=== PATIENT | male | born 1955 | race American Indian/Alaskan Native ===

== ENCOUNTER 2019-03-03 10:40 | Emergency (ER) | payer MEDICAID ==
--- NOTE | 2019-03-03 11:32 | Emergency Department Report ---
ED Abdominal Pain HPI - General Chief Complaint: Abdominal Pain Stated Complaint: ABDOMINAL PAIN/DIARRHEA Time Seen by Provider: 03/03/19 11:14 Source: patient Mode of arrival: Ambulatory Limitations: No Limitations - History of Present Illness Initial Comments: This is a 63-year-old male who presents to ED complaining of abdominal soreness generalized in nature and watery loose stools for the past week. Patient states that he has been experiencing watery nonbloody loose stools for the past week. Patient denies fevers/assessment vomiting with it she describes abdominal pain as soreness and aching in nature. Patient states he is able to eat normally no problems. MD Complaint: abdominal pain - Related Data Previous Rx's Medication Instructions Recorded Last Taken Type ALBUTEROL Inhaler (OR & NICU) 2 puff IH QID PRN #1 inhalation 08/20/18 Unknown Rx [ProAir HFA Inhaler] Benzonatate [Tessalon Perles] 100 mg PO Q8HR #10 capsule 08/20/18 Unknown Rx HYDROcodone/APAP 5-325 [[place] 1 each PO Q4HR PRN #12 tablet 08/20/18 Unknown Rx 5/325] predniSONE [Deltasone] 20 mg PO QDAY #5 tab 08/20/18 Unknown Rx Dicyclomine [Bentyl] 10 mg PO BID #20 capsule 03/03/19 Unknown Rx Loperamide [Imodium] 2 mg PO TID #20 capsule 03/03/19 Unknown Rx Allergies Allergy/AdvReac Type Severity Reaction Status Date / Time No Known Allergies Allergy Verified 03/03/19 10:42 ED Review of Systems ROS: Stated complaint: ABDOMINAL PAIN/DIARRHEA Other details as noted in HPI Comment: All other systems reviewed and negative ED Past Medical Hx - Past Medical History Hx Hypertension: Yes Additional medical history: high cholesterol - Social History Smoking Status: Former Smoker Substance Use Type: None - Medications Home Medications: Home Medications Medication Instructions Recorded Confirmed Last Taken Type ALBUTEROL Inhaler (OR & NICU) 2 puff IH QID PRN #1 inhalation 08/20/18 Unknown Rx [ProAir HFA Inhaler] Benzonatate [Tessalon Perles] 100 mg PO Q8HR #10 capsule 08/20/18 Unknown Rx HYDROcodone/APAP 5-325 [[place] 1 each PO Q4HR PRN #12 tablet 08/20/18 Unknown Rx 5/325] predniSONE [Deltasone] 20 mg PO QDAY #5 tab 08/20/18 Unknown Rx Dicyclomine [Bentyl] 10 mg PO BID #20 capsule 03/03/19 Unknown Rx Loperamide [Imodium] 2 mg PO TID #20 capsule 03/03/19 Unknown Rx ED Physical Exam - General Limitations: No Limitations General appearance: alert, in no apparent distress - Head Head exam: Present: atraumatic, normocephalic - Eye Eye exam: Present: normal appearance - ENT ENT exam: Present: mucous membranes moist - Neck Neck exam: Present: normal inspection - Respiratory Respiratory exam: Present: normal lung sounds bilaterally. Absent: respiratory distress - Cardiovascular Cardiovascular Exam: Present: regular rate, normal rhythm. Absent: systolic murmur, diastolic murmur, rubs, gallop - GI/Abdominal GI/Abdominal exam: Present: soft, normal bowel sounds - Rectal Rectal exam: Present: deferred - Extremities Exam Extremities exam: Present: normal inspection - Back Exam Back exam: Present: normal inspection - Neurological Exam Neurological exam: Present: alert, oriented X3 - Psychiatric Psychiatric exam: Present: normal affect, normal mood - Skin Skin exam: Present: warm, dry, intact, normal color. Absent: rash ED Course Vital Signs 03/03/19 03/03/19 10:45 15:24 Temperature 97.7 F 97.7 F Pulse Rate 62 64 Respiratory 18 16 Rate Blood Pressure 100/70 96/70 O2 Sat by Pulse 96 92 Oximetry ED Medical Decision Making - Lab Data Result diagrams: 03/03/19 13:19 03/03/19 13:19 - Radiology Data Radiology results: report reviewed, image reviewed FINDINGS: CT ABDOMEN: Lung Bases: Clear. Liver: No enlargement. Mild diffuse fatty infiltration is noted. Biliary: No significant abnormality. Spleen: No significant abnormality. Unenlarged. Pancreas: No significant abnormality. Adrenals: No significant abnormality. Kidneys: No significant abnormality. Lymphatics: No lymphadenopathy. Vasculature: Mild aortic calcifications. No aneurysm Bowel/Peritoneum: No significant abnormality. No free air. No free fluid. Normal appendix. CT PELVIS: : No significant abnormality. Osseous Structures: Moderate lumbar spondylosis and degenerative changes of both hips. Focal area of osteonecrosis is identified in the superior left femoral head. Additional Findings: There are 2 ovoid soft tissue densities posterior to the right hepatic lobe adjacent to the 10th rib measuring up to 2.8 x 1.7 cm. The etiology of these are unclear. These may represent schwannomas or other neurogenic lesion. IMPRESSION: No acute process is identified in the abdomen or pelvis. Mild hepatic steatosis. Degenerative changes as described. 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 Ovoid soft tissue densities posterior the right hepatic lobe as described above. These have a benign appearance. Signer Name: Stephen Cutler Jr, MD Signed: 03/03/2019 1:30 PM Workstation Name: [id number] Transcribed By: TTR Dictated By: STEPHEN CUTLER JR, MD Electronically Authenticated By: STEPHEN CUTLER JR, MD Signed Date/Time: 03/03/19 9080 - Medical Decision Making This 63-year-old male presents with acute diarrhea All labs are within normal limits. Patient received Imodium and Bentyl ED. Patient reports feeling better. Discussed the patient to follow up with [facility] as referred. Past sensory are stable patient is in no acute distress. Abdominal Exam nontender. CT scan shows no acute status. Discussed findings with the patient. Discussed the patient to follow up with primary care physician. Critical care attestation.: If time is entered above; I have spent that time in minutes in the direct care of this critically ill patient, excluding procedure time. ED Disposition Clinical Impression: Acute diarrhea, Acute gastroenteritis Disposition: DC-01 TO HOME OR SELFCARE Is pt being admited?: No Does the pt Need Aspirin: No Condition: Stable Instructions: Gastroenteritis (ED), Abdominal Pain (ED), Acute Diarrhea (ED) Additional Instructions: Make sure to follow up with the primary care physician as well as a auto rebuilder as discussed. Take all your medications as you've been prescribed. If you have any worsening symptoms or develop new symptoms please return to ED immediately. Prescriptions: Dicyclomine [Bentyl] 10 mg PO BID #20 capsule Loperamide [Imodium] 2 mg PO TID #20 capsule Referrals: PRIMARY CAREMD [Primary Care Provider] - 3-5 Days [facility] [Provider Group] - 3-5 Days Forms: Accompanied Note, Work/School Release Form(ED) Time of Disposition: 15:41
--- NOTE | 2019-03-03 13:34 | Cat Scan Report ---
CT ABDOMEN AND PELVIS WITHOUT CONTRAST HISTORY: Abdominal pain in umbilical region for 7 days, diarrhea. COMPARISON: None. TECHNIQUE: Axial CT images were obtained through the abdomen and pelvis without IV contrast. Sagittal and coronal reformatted images. All CT scans at this location are performed using CT dose reduction for ALARA by means of automated exposure control. FINDINGS: CT ABDOMEN: Lung Bases: Clear. Liver: No enlargement. Mild diffuse fatty infiltration is noted. Biliary: No significant abnormality. Spleen: No significant abnormality. Unenlarged. Pancreas: No significant abnormality. Adrenals: No significant abnormality. Kidneys: No significant abnormality. Lymphatics: No lymphadenopathy. Vasculature: Mild aortic calcifications. No aneurysm Bowel/Peritoneum: No significant abnormality. No free air. No free fluid. Normal appendix. CT PELVIS: : No significant abnormality. Osseous Structures: Moderate lumbar spondylosis and degenerative changes of both hips. Focal area of osteonecrosis is identified in the superior left femoral head. Additional Findings: There are 2 ovoid soft tissue densities posterior to the right hepatic lobe elaina cent to the 10th rib measuring up to 2.8 x 1.7 cm. The etiology of these are unclear. These may repre sent schwannomas or other neurogenic lesion. IMPRESSION: No acute process is identified in the abdomen or pelvis. Mild hepatic steatosis. Degenerative changes as described. 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 Ovoid soft tissue densities posterior the right hepatic lobe as described above. These have a benign appearance. Signer Name: Stephen Hunter Jr, MD Signed: 03/03/2019 1:30 PM Workstation Name: [id number]
[2019-03-03 13:42] LABS: Basophils % (Auto) 0.5 % (0.0-1.8); Eosinophils # (Auto) 0.2 K/mm3 (0.0-0.4); Hematocrit 37.8 % (35.5-45.6); Hemoglobin 12.1 gm/dl (11.8-15.2); Lymphocytes # (Auto) 2.1 K/mm3 (1.2-5.4); Lymphocytes % (Auto) 30.9 % (13.4-35.0); Mean Corpuscular HGB Conc 32 % (32-34); Mean Corpuscular Volume 74 fl (84-94); Monocytes # (Auto) 0.8 K/mm3 (0.0-0.8); Monocytes % (Auto) 11.9 % (0.0-7.3); Platelet Count 269 K/mm3 (140-440); Red Blood Count 5.12 M/mm3 (3.65-5.03); Red Cell Distribution Width 16.6 % (13.2-15.2)
[2019-03-03 13:57] LABS: Albumin 3.9 g/dL (3.9-5)
[2019-03-03] MEDS ORDERED: IMODIUM PO ONE (14:42)
[2019-03-03] MEDS ORDERED: BENTYL PO ONE (14:43)
[2019-03-03 14:46] LABS: Alanine Aminotransferase 20 units/L (7-56); BUN/Creatinine Ratio 10; Blood Urea Nitrogen 10 mg/dL (9-20); Hemolysis Index 6
[2019-03-03 15:57] VITALS: BP 100/71
== END 2019-03-03 15:56 | disposition home or self-care (01) ==
LOC: ED 10:40
DX: K52.9 Noninfective gastroenteritis and colitis, unspecified (principal); I10 Essential (primary) hypertension; E78.5 Hyperlipidemia, unspecified; Z79.899 Other long term (current) drug therapy
CPT/HCPCS: 36415; 74176; 80053; 85025

== ENCOUNTER 2019-04-25 09:01 | Inpatient (IN) | payer MEDICAID ==
[2019-04-25] MEDS ORDERED: ASPIRIN PO ONE (09:13)
--- NOTE | 2019-04-25 10:01 | XRay Report ---
CHEST 1 VIEW INDICATION / CLINICAL INFORMATION: Chest Pain. COMPARISON: 08/20/2018 FINDINGS: SUPPORT DEVICES: None. HEART / MEDIASTINUM: No significant abnormality. LUNGS / PLEURA: Mild bibasilar subsegmental atelectasis No pneumothorax. ADDITIONAL FINDINGS: No significant additional findings. IMPRESSION: Mild bibasilar subsegmental atelectasis. No other significant abnormality. Signer Name: Mark Rahman MD FACR Signed: 04/25/2019 9:57 AM Workstation Name: [id number]
[2019-04-25 10:27] LABS: Basophils % (Auto) 0.5 % (0.0-1.8); Eosinophils # (Auto) 0.3 K/mm3 (0.0-0.4); Eosinophils % (Auto) 3.9 % (0.0-4.3); Hematocrit 32.6 % (35.5-45.6); Hemoglobin 10.6 gm/dl (11.8-15.2); Lymphocytes # (Auto) 2.6 K/mm3 (1.2-5.4); Lymphocytes % (Auto) 31.8 % (13.4-35.0); Mean Corpuscular HGB Conc 33 % (32-34); Mean Corpuscular Volume 71 fl (84-94); Monocytes # (Auto) 0.8 K/mm3 (0.0-0.8); Monocytes % (Auto) 9.7 % (0.0-7.3); Platelet Count 291 K/mm3 (140-440); Red Blood Count 4.59 M/mm3 (3.65-5.03); Red Cell Distribution Width 17.1 % (13.2-15.2)
[2019-04-25 10:45] LABS: BUN/Creatinine Ratio 11; Blood Urea Nitrogen 9 mg/dL (9-20); Calcium 8.8 mg/dL (8.4-10.2); Hemolysis Index 3
[2019-04-25] MEDS ORDERED: NACL 0.9% 1000 ML 1,000 ML IV ONE (11:04)
[2019-04-25] MEDS ORDERED: MORPHINE IV ONE (11:04)
[2019-04-25] MEDS ORDERED: ZOFRAN IV ONE (11:04)
[2019-04-25] MEDS ORDERED: K-DUR PO ONE (11:05)
--- NOTE | 2019-04-25 11:06 | Emergency Department Report ---
ED General Adult HPI - General Chief complaint: Chest Pain Stated complaint: CHEST/SHOULDER/RIB PAIN Time Seen by Provider: 04/25/19 10:39 Source: patient Mode of arrival: Ambulatory Limitations: No Limitations - History of Present Illness Initial comments: This is a 63-year-old gentleman. This patient is not known to this provider previously. His primary care doctor is Dr. Rubio His past medical history includes hypertension. The patient presents to the ER with a complaint of nontraumatic lower abdominal pain. The pain has been present for a few days. It started in the left lower quadrant, radiates up superiorly, and then moves over to the left upper quadrant, epigastric region, right upper quadrant. There is associated nontraumatic abdominal distention, and left shoulder pain. The patient feels mildly short of breath. He denies hematemesis. He denies bright red blood per rectum. He has some epigastric pain. He denies DVT, pulmonary embolism risk factors. He has central chest pressure as well. He denies urinary symptoms, and testicular pain/discomfort. He also endorses a negative colonoscopy within the past few years. -: Gradual, days(s) Location: abdomen Radiation: extremity, abdomen Severity scale (0 -10): 8 Quality: aching Consistency: intermittent Improves with: rest Worsens with: movement - Related Data Previous Rx's Medication Instructions Recorded Last Taken Type ALBUTEROL Inhaler (OR & NICU) 2 puff IH QID PRN #1 inhalation 08/20/18 Unknown Rx [ProAir HFA Inhaler] Benzonatate [Tessalon Perles] 100 mg PO Q8HR #10 capsule 08/20/18 Unknown Rx HYDROcodone/APAP 5-325 [[place] 1 each PO Q4HR PRN #12 tablet 08/20/18 Unknown Rx 5/325] predniSONE [Deltasone] 20 mg PO QDAY #5 tab 08/20/18 Unknown Rx Dicyclomine [Bentyl] 10 mg PO BID #20 capsule 03/03/19 Unknown Rx Loperamide [Imodium] 2 mg PO TID #20 capsule 03/03/19 Unknown Rx Allergies Allergy/AdvReac Type Severity Reaction Status Date / Time No Known Allergies Allergy Verified 03/03/19 10:42 ED Review of Systems ROS: Stated complaint: CHEST/SHOULDER/RIB PAIN Other details as noted in HPI Constitutional: malaise. denies: fever Eyes: denies: eye discharge ENT: denies: epistaxis Respiratory: denies: cough, wheezing Cardiovascular: chest pain. denies: syncope Gastrointestinal: abdominal pain. denies: constipation, hematemesis, melena, hematochezia Genitourinary: denies: urgency, dysuria, frequency, hematuria, testicular pain Musculoskeletal: arthralgia, myalgia Skin: denies: lesions Neurological: denies: headache Psychiatric: anxiety ED Past Medical Hx - Past Medical History Previous Medical History?: Yes Hx Hypertension: Yes Hx Deep Vein Thrombosis: Yes Additional medical history: high cholesterol - Surgical History Past Surgical History?: No - Social History Smoking Status: Former Smoker Substance Use Type: None - Medications Home Medications: Home Medications Medication Instructions Recorded Confirmed Last Taken Type ALBUTEROL Inhaler (OR & NICU) 2 puff IH QID PRN #1 inhalation 08/20/18 Unknown Rx [ProAir HFA Inhaler] Benzonatate [Tessalon Perles] 100 mg PO Q8HR #10 capsule 08/20/18 Unknown Rx HYDROcodone/APAP 5-325 [[place] 1 each PO Q4HR PRN #12 tablet 08/20/18 Unknown Rx 5/325] predniSONE [Deltasone] 20 mg PO QDAY #5 tab 08/20/18 Unknown Rx Dicyclomine [Bentyl] 10 mg PO BID #20 capsule 03/03/19 Unknown Rx Loperamide [Imodium] 2 mg PO TID #20 capsule 03/03/19 Unknown Rx ED Physical Exam - General Limitations: No Limitations General appearance: alert, anxious, obese - Head Head exam: Present: atraumatic, normocephalic - Eye Eye exam: Present: normal appearance, EOMI. Absent: nystagmus - ENT ENT exam: Present: normal exam, normal orophraynx, mucous membranes moist, normal external ear exam - Neck Neck exam: Present: normal inspection, full ROM. Absent: tenderness, meningismus - Respiratory Respiratory exam: Present: normal lung sounds bilaterally. Absent: respiratory distress - Cardiovascular Cardiovascular Exam: Present: regular rate, normal rhythm, normal heart sounds. Absent: bradycardia, tachycardia, irregular rhythm, systolic murmur, diastolic murmur, rubs, gallop - GI/Abdominal GI/Abdominal exam: Present: soft, distended. Absent: tenderness, guarding, rebound, rigid, pulsatile mass - Rectal Rectal exam: Present: normal inspection, normal rectal tone, heme (-) stool, other (chaperoned by ALINA Gabriel). Absent: heme (+) stool, black stool, bloody stool, fecal impaction, hemorrhoids - exam: Present: normal inspection, other (chaperoned by ALINA Gabriel). Absent: testicular tenderness External exam: Present: normal external exam (there is normal testicular lie. There is normal cremasteric reflex. There is no testicular tenderness.) - Extremities Exam Extremities exam: Present: normal inspection, full ROM, other (2+ pulses noted in the bilateral upper, lower extremities. There is no long bony tenderness. The pelvis is stable. The muscular compartments are soft. There is full range of motion in the bilateral upper, lower extremity joints.). Absent: tenderness, pedal edema, joint swelling, calf tenderness - Back Exam Back exam: Present: normal inspection, full ROM. Absent: tenderness, CVA tenderness (R), CVA tenderness (L), paraspinal tenderness, vertebral tenderness - Neurological Exam Neurological exam: Present: alert, oriented X3, other (there is no facial droop. The tongue is midline. Extraocular movements are intact bilaterally. Patient speaking in full complete sentences. Shoulder shrug is intact bilaterally. Hearing is grossly intact bilaterally. Visual acuity intact to finger counting and color perception at a close distance. 5/5 strength 4 extremities. Sensation intact to light touch in 4 extremities.). Absent: motor sensory deficit - Psychiatric Psychiatric exam: Present: anxious - Skin Skin exam: Present: warm, dry, intact, normal color. Absent: rash ED Course Vital Signs 04/25/19 04/25/19 04/25/19 09:08 10:13 10:14 Temperature 98.5 F Pulse Rate 75 80 Respiratory 16 21 23 Rate Blood Pressure 142/84 Blood Pressure 165/100 [Right] O2 Sat by Pulse 93 90 93 Oximetry - Reevaluation(s) Reevaluation #1: 04/25/19 12:15 Differential diagnosis, including not limited to: Intra-abdominal bleeding, intra-abdominal infection, AAA, pulmonary embolism, pneumonia, acute coronary syndrome Assessment and plan: 63-year-old gentleman with a complaint of diffuse abdominal pain, distention, shoulder pain, guaiac negative, hemoglobin, hematocrit slightly lower than when compared to prior, also found to be hypoxic, which appears to be new for him. He require supplemental oxygen. We have recommended CT scan of the chest, abdomen, pelvis for further diagnostic evaluation. Laboratory studies reviewed and appreciated. Pain medication, fluids, potassium supplementation has been ordered. The patient is resting comfortably, and history of her, and in no acute distress. We will reassess once his data points have resulted. Reevaluation #2: 04/25/19 12:17 Aspirin was ordered as per protocol, before my personal evaluation of the patient, and was administered before I was physically present in the department to evaluate the patient. Reevaluation #3: 04/25/19 13:22 CT scan of the chest shows bilateral lower lobe consolidations. No pulmonary emboli noted. CT scan of the abdomen pelvis negative for acute rheumatic disease. Patient continues to require submental oxygen. Antibiotics blood cultures ordered. Dr Ribeiro to admit 04/25/19 13:23 Given obesity, body habitus, physical exam findings, suspect that patient may have undiagnosed obstructive sleep apnea, COPD, probable pulmonary hypertension, and atelectatic changes. ED Medical Decision Making - Lab Data Result diagrams: 04/25/19 09:58 04/25/19 09:58 Vital Signs 04/25/19 04/25/19 04/25/19 09:08 10:13 10:14 Temperature 98.5 F Pulse Rate 75 80 Respiratory 16 21 23 Rate Blood Pressure 142/84 Blood Pressure 165/100 [Right] O2 Sat by Pulse 93 90 93 Oximetry Lab Results 04/25/19 04/25/19 04/25/19 Range/Units 09:58 09:58 09:58 WBC 8.2 (4.5-11.0) K/mm3 RBC 4.59 (3.65-5.03) M/mm3 Hgb 10.6 L (11.8-15.2) gm/dl Hct 32.6 L (35.5-45.6) % MCV 71 L (84-94) fl MCH 23 L (28-32) pg MCHC 33 (32-34) % RDW 17.1 H (13.2-15.2) % Plt Count 291 (140-440) K/mm3 Lymph % (Auto) 31.8 (13.4-35.0) % [place] % (Auto) 9.7 H (0.0-7.3) % Eos % (Auto) 3.9 (0.0-4.3) % Baso % (Auto) 0.5 (0.0-1.8) % Lymph # 2.6 (1.2-5.4) K/mm3 [place] # 0.8 (0.0-0.8) K/mm3 Eos # 0.3 (0.0-0.4) K/mm3 Baso # 0.0 (0.0-0.1) K/mm3 Seg Neutrophils % 54.1 (40.0-70.0) % Seg Neutrophils # 4.4 (1.8-7.7) K/mm3 PT (12.2-14.9) Sec. INR (0.87-1.13) APTT (24.2-36.6) Sec. D-Dimer (0-234) ng/mlDDU Sodium 142 (137-145) mmol/L Potassium 3.1 L (3.6-5.0) mmol/L Chloride 99.4 (98-107) mmol/L Carbon Dioxide 27 (22-30) mmol/L Anion Gap 19 mmol/L BUN 9 (9-20) mg/dL Creatinine 0.8 (0.8-1.5) mg/dL Estimated GFR > 60 ml/min BUN/Creatinine Ratio 11 % Glucose 98 (75-100) mg/dL Calcium 8.8 (8.4-10.2) mg/dL Magnesium 2.20 (1.7-2.3) mg/dL Total Bilirubin 0.60 (0.1-1.2) mg/dL Direct Bilirubin < 0.2 (0-0.2) mg/dL Indirect Bilirubin 0.4 mg/dL AST 24 (5-40) units/L ALT 23 (7-56) units/L Alkaline Phosphatase 77 (35-129) units/L Total Creatine Kinase 390 H (55-170) units/L Troponin T < 0.010 (0.00-0.029) ng/mL Total Protein 7.4 (6.3-8.2) g/dL Albumin 4.2 (3.9-5) g/dL Albumin/Globulin Ratio 1.3 % Lipase 14 (13-60) units/L 04/25/19 Range/Units 11:18 WBC (4.5-11.0) K/mm3 RBC (3.65-5.03) M/mm3 Hgb (11.8-15.2) gm/dl Hct (35.5-45.6) % MCV (84-94) fl MCH (28-32) pg MCHC (32-34) % RDW (13.2-15.2) % Plt Count (140-440) K/mm3 Lymph % (Auto) (13.4-35.0) % [place] % (Auto) (0.0-7.3) % Eos % (Auto) (0.0-4.3) % Baso % (Auto) (0.0-1.8) % Lymph # (1.2-5.4) K/mm3 [place] # (0.0-0.8) K/mm3 Eos # (0.0-0.4) K/mm3 Baso # (0.0-0.1) K/mm3 Seg Neutrophils % (40.0-70.0) % Seg Neutrophils # (1.8-7.7) K/mm3 PT 13.0 (12.2-14.9) Sec. INR 1.01 (0.87-1.13) APTT 33.7 (24.2-36.6) Sec. D-Dimer 835.31 H (0-234) ng/mlDDU Sodium (137-145) mmol/L Potassium (3.6-5.0) mmol/L Chloride (98-107) mmol/L Carbon Dioxide (22-30) mmol/L Anion Gap mmol/L BUN (9-20) mg/dL Creatinine (0.8-1.5) mg/dL Estimated GFR ml/min BUN/Creatinine Ratio % Glucose (75-100) mg/dL Calcium (8.4-10.2) mg/dL Magnesium (1.7-2.3) mg/dL Total Bilirubin (0.1-1.2) mg/dL Direct Bilirubin (0-0.2) mg/dL Indirect Bilirubin mg/dL AST (5-40) units/L ALT (7-56) units/L Alkaline Phosphatase (35-129) units/L Total Creatine Kinase (55-170) units/L Troponin T (0.00-0.029) ng/mL Total Protein (6.3-8.2) g/dL Albumin (3.9-5) g/dL Albumin/Globulin Ratio % Lipase (13-60) units/L - EKG Data -: EKG Interpreted by Nc EKG shows normal: sinus rhythm Rate: normal - EKG Data 04/25/19 12:17 There is no prior EKG available for comparison. This is a sinus rhythm, left axis deviation, left anterior fascicular block, left ventricular hypertrophy, he is abnormal, there is no prior for comparison, the EKG is not consistent with ST elevation myocardial infarction. - Radiology Data Radiology results: report reviewed, image reviewed t Report Referring Physician: ED LEON Patient Name: AYO MCFADDEN Date of : 1955 Sex: Male Report Date: 2019-04-25 Report Status: Finalized Findings [facility] [address] [place] [address] XRay Report Signed Patient: AYO MCFADDEN MR#: [id number] : 1955 Acct:[id number] Age/Sex: 63 / M ADM Date: 04/25/19 Loc: ED Attending Dr: Ordering Physician: PEDRO QUINTERO MD Date of Service: 04/25/19 Procedure(s): XR chest 1V ap Accession Number(s): [id number] cc: PEDRO QUINTERO MD Fluoro Time In Minutes: CHEST 1 VIEW INDICATION / CLINICAL INFORMATION: Chest Pain. COMPARISON: 08/20/2018 FINDINGS: SUPPORT DEVICES: None. HEART / MEDIASTINUM: No significant abnormality. LUNGS / PLEURA: Mild bibasilar subsegmental atelectasis No pneumothorax. ADDITIONAL FINDINGS: No significant additional findings. IMPRESSION: Mild bibasilar subsegmental atelectasis. No other significant abnormality. Signer Name: Mark Rahman MD FACR Signed: 04/25/2019 9:57 AM Workstation Name: [id number] Transcribed By: MS Dictated By: Mark Rahman MD Electronically Authenticated By: Mark Rahman MD Signed Date/Time: 04/25/19 0957 COMPARISON: None available. FINDINGS: PULMONARY ARTERIES: No pulmonary emboli. AORTA AND ARTERIES: No acute abnormality. MEDIASTINUM: No mass, lymphadenopathy or other significant abnormality. The heart is normal in size without a pericardial effusion. The trachea and main bronchi are patent and normal in caliber. LUNGS: Tiny bilateral pleural effusions. Patchy consolidation of both lower lungs. The upper lungs are clear.. ADDITIONAL FINDINGS: None. UPPER ABDOMEN: No acute findings. BONES: No significant osseous abnormality. IMPRESSION: 1. No CT evidence for pulmonary embolism. 2. Small bilateral pleural effusions. Patchy consolidation of both lower lungs. Signer Name: Jack Garcia MD Signed: 04/25/2019 12:55 PM Workstation Name: [id number] Transcribed By: GREGORY Dictated By: Jack Garcia MD Electronically Authenticated By: Jack Garcia MD Signed Date/Time: 04/25/[address] ABDOMEN AND PELVIS WITH IV CONTRAST INDICATION: Diffuse abdominal pain with hypoxia. COMPARISON: None available. TECHNIQUE: Axial CT images were obtained through the abdomen and pelvis after 100 mL IV contrast. All CT scans at this location are performed using CT dose reduction for ALARA by means of automated exposure control. FINDINGS -- ABDOMEN: Liver: Fatty appearing liver with several small minimally complex cysts exophytically arising from the posterior hepatic segment.. Gallbladder: Normal. Bile Ducts: Normal. Pancreas: Normal. Spleen: Normal. Adrenals: Normal. Right Kidney and Proximal Ureter: Normal. Left Kidney and Proximal Ureter: Normal. Stomach and Bowel: Normal. Lymph Nodes: No significant adenopathy. Aorta: No significant abnormality. IVC: Normal. Additional Findings: None. FINDINGS -- PELVIS: Urinary Bladder and Distal Ureters: Normal. Reproductive Organs: No acute abnormality. Appendix: Normal. Bowel: No acute abnormality. Free Fluid: None. Lymph Nodes: No significant adenopathy. Additional Findings: None. Skeletal System: Moderate degenerative changes of both hips. IMPRESSION: Small left pleural effusion. No acute intra-abdominal findings are identified. Signer Name: Jack Garcia MD Signed: 04/25/2019 1:05 PM Workstation Name: [id number] Transcribed By: GREGORY Dictated By: Jack Garcia MD Electronically Authenticated By: Jack Garcia MD Signed Date/Time: 04/25/19 1305 Critical care attestation.: If time is entered above; I have spent that time in minutes in the direct care of this critically ill patient, excluding procedure time. ED Disposition Clinical Impression: Hypoxia, Right lower lobe consolidation, Left lower lobe consolidation Disposition: OP ADMIT IP TO THIS HOSP Is pt being admited?: Yes Does the pt Need Aspirin: Yes Condition: Stable Referrals: PRIMARY CARE,MD [Primary Care Provider] - 3-5 Days
[2019-04-25 11:43] LABS: INR 1.01 (0.87-1.13)
[2019-04-25 11:44] LABS: Partial Thromboplastin Time 33.7 Sec. (24.2-36.6)
[2019-04-25 11:55] LABS: Alanine Aminotransferase 23 units/L (7-56); Albumin 4.2 g/dL (3.9-5)
[2019-04-25 11:58] LABS: Bilirubin,Direct < 0.2 mg/dL (0-0.2)
--- NOTE | 2019-04-25 13:00 | Cat Scan Report ---
CTA CHEST WITH IV CONTRAST INDICATION: Acute onset chest pain and dyspnea TECHNIQUE: Axial CT images were obtained through the chest after injection of 100 mL IV contrast. 3 plane MIP re constructions were produced. All CT scans at this location are performed using CT dose reduction for ALARA by means of automated exposure control. COMPARISON: None available. FINDINGS: PULMONARY ARTERIES: No pulmonary emboli. AORTA AND ARTERIES: No acute abnormality. MEDIASTINUM: No mass, lymphadenopathy or other significant abnormality. The heart is normal in size w ithout a pericardial effusion. The trachea and main bronchi are patent and normal in caliber. LUNGS: Tiny bilateral pleural effusions. Patchy consolidation of both lower lungs. The upper lungs ar e clear.. ADDITIONAL FINDINGS: None. UPPER ABDOMEN: No acute findings. BONES: No significant osseous abnormality. IMPRESSION: 1. No CT evidence for pulmonary embolism. 2. Small bilateral pleural effusions. Patchy consolidation of both lower lungs. Signer Name: Jack Garcia MD Signed: 04/25/2019 12:55 PM Workstation Name: [id number]
--- NOTE | 2019-04-25 13:09 | Cat Scan Report ---
CT ABDOMEN AND PELVIS WITH IV CONTRAST INDICATION: Diffuse abdominal pain with hypoxia. COMPARISON: None available. TECHNIQUE: Axial CT images were obtained through the abdomen and pelvis after 100 mL IV contrast. All CT scans a t this location are performed using CT dose reduction for ALARA by means of automated exposure contro l. FINDINGS -- ABDOMEN: Liver: Fatty appearing liver with several small minimally complex cysts exophytically arising from th e posterior hepatic segment.. Gallbladder: Normal. Bile Ducts: Normal. Pancreas: Normal. Spleen: Normal. Adrenals: Normal. Right Kidney and Proximal Ureter: Normal. Left Kidney and Proximal Ureter: Normal. Stomach and Bowel: Normal. Lymph Nodes: No significant adenopathy. Aorta: No significant abnormality. IVC: Normal. Additional Findings: None. FINDINGS -- PELVIS: Urinary Bladder and Distal Ureters: Normal. Reproductive Organs: No acute abnormality. Appendix: Normal. Bowel: No acute abnormality. Free Fluid: None. Lymph Nodes: No significant adenopathy. Additional Findings: None. Skeletal System: Moderate degenerative changes of both hips. IMPRESSION: Small left pleural effusion. No acute intra-abdominal findings are identified. Signer Name: Jack Garcia MD Signed: 04/25/2019 1:05 PM Workstation Name: [id number]
[2019-04-25] MEDS: KCL 10MEQ/100ML 10 MEQ/100 ML BAG IV SCH ×2 (13:16→14:49)
[2019-04-25] MEDS ORDERED: LEVAQUIN 750MG/150ML 750 MG/150 ML BAG IV ONE ×2 (13:20→15:15)
[2019-04-25] MEDS ORDERED: NACL 0.9% 500 ML 500 ML IV ONE (13:20)
[2019-04-25] MEDS ORDERED: SODIUM CHLORIDE FLUSH SYRINGE 10 ML IV PRN (13:42)
[2019-04-25] MEDS ORDERED: TYLENOL PO PRN (13:42)
[2019-04-25] MEDS ORDERED: ZOFRAN IV PRN (13:42)
--- NOTE | 2019-04-25 13:45 | History and Physical Report ---
History of Present Illness Chief complaint: Im hurting History of present illness: 63 YO Male with HTN, HLD, DVT not currently on therapeutic anticoagulation present to ED for evaluation. Pt states that he has experienced pain in his chest. Pt localized an area on the body that is the Left flank. Pt states that he has experienced pain over the past 3 days. Pt states that pain is 8/10, begins in the left lower quadrant, radiates upward and then moves to the left upper quadrant, then goes to the epigastric region and subsequently crosses over into right upper quadrant. Pt also acknowledges mild shortness of breath. Pt transported to [facility] via private vehicle. Pt seen and evaluated in ED and found to have Bilateral Lower lobe Pneumonia. Pt admitted to medical floor, and initiated on Pneumonia protocol. Pt denies fever, chills, CP, palpitations, hematemesis, productive cough, BRBPR, unintentional weight loss, night sweats, ingestion of food/water from new/different sources. Past History Past Medical History: DVT, hypertension, hyperlipidemia Past Surgical History: No surgical history, Other (reviewed) Social history: single. denies: smoking, alcohol abuse, prescription drug abuse Family history: hypertension Medications and Allergies Allergies Allergy/AdvReac Type Severity Reaction Status Date / Time No Known Allergies Allergy Verified 03/03/19 10:42 Home Medications Medication Instructions Recorded Confirmed Last Taken Type ALBUTEROL Inhaler (OR & NICU) 2 puff IH QID PRN #1 inhalation 08/20/18 Unknown Rx [ProAir HFA Inhaler] Benzonatate [Tessalon Perles] 100 mg PO Q8HR #10 capsule 08/20/18 Unknown Rx HYDROcodone/APAP 5-325 [[place] 1 each PO Q4HR PRN #12 tablet 08/20/18 Unknown Rx 5/325] predniSONE [Deltasone] 20 mg PO QDAY #5 tab 08/20/18 Unknown Rx Dicyclomine [Bentyl] 10 mg PO BID #20 capsule 03/03/19 Unknown Rx Loperamide [Imodium] 2 mg PO TID #20 capsule 03/03/19 Unknown Rx Active Meds: Active Medications Potassium Chloride (Kcl 10meq/100ml) 10 meq in 100 mls @ 100 mls/hr IV Q1H TYSHAWN Stop: 04/25/19 13:59 Last Admin: 04/25/19 13:16 Dose: 100 mls/hr Documented by: Levofloxacin/Dextrose (Levaquin 750mg/150ml) 750 mg in 150 mls @ 100 mls/hr IV ONCE ONE Stop: 04/25/19 14:49 Sodium Chloride (Nacl 0.9% 500 Ml) 500 mls @ 999 mls/hr IV ONCE ONE Stop: 04/25/19 13:50 Review of Systems Constitutional: no weight loss, no weight gain, no fever, no chills Ears, nose, mouth and throat: no ear pain, no ear discharge, no tinnitis, no decreased hearing, no nose pain, no nasal discharge, no sinus pain Cardiovascular: no chest pain, no orthopnea, no syncope, no lightheadedness, no shortness of breath Respiratory: no cough, no cough with sputum, no excessive sputum, no hemoptysis Gastrointestinal: no nausea, no vomiting, no diarrhea, no constipation, no coffee ground emesis Genitourinary Male: flank pain, no dysuria, no hematuria, no discharge, no u rinary frequency, no nocturia Rectal: no pain, no incontinence, no bleeding Musculoskeletal: no neck stiffness, no neck pain, no shooting arm pain Integumentary: no rash, no pruritis, no sores, no wounds, no jaundice Neurological: no head injury, no transient paralysis, no paralysis, no weakness, no parathesias, no numbness, no tingling, no seizures, no syncope Psychiatric: no anxiety, no memory loss, no change in sleep habits, no sleep disturbances, no insomnia, no hypersomnia, no change in libido, no suicidal ideation Endocrine: no cold intolerance, no heat intolerance, no polyphagia, no excessive thirst, no polydipsia, no excessive sweating, no flushing Hematologic/Lymphatic: no easy bruising, no easy bleeding, no lymphadenopathy, no lymphedema Allergic/Immunologic: no urticaria, no allergic rhinitis, no wheezing, no persistent infections, no anaphylaxis, no angioedema Exam - Constitutional Vitals: Temp Pulse Resp BP Pulse Ox 98.5 F 80 23 165/100 93 04/25/19 09:08 04/25/19 10:13 04/25/19 10:14 04/25/19 10:13 04/25/19 10:14 General appearance: Present: mild distress - EENT Eyes: Present: PERRL ENT: hearing intact, clear oral mucosa - Neck Neck: Present: supple, normal ROM - Respiratory Respiratory effort: normal Respiratory: bilateral: diminished - Cardiovascular Heart Sounds: Present: S1 & S2. Absent: rub, click - Extremities Extremities: pulses symmetrical, No edema Peripheral Pulses: within normal limits - Abdominal General gastrointestinal: Present: soft, non-tender, non-distended, normal bowel sounds Male genitourinary: Present: normal - Integumentary Integumentary: Present: clear, warm, dry - Musculoskeletal Musculoskeletal: gait normal, strength equal bilaterally - Psychiatric Psychiatric: appropriate mood/affect, intact judgment & insight - Neurologic Neurologic: CNII-XII intact, moves all extremities Results - Labs CBC & Chem 7: 04/25/19 09:58 04/25/19 09:58 Labs: Abnormal lab results 04/25/19 04/25/19 04/25/19 Range/Units 09:58 09:58 09:58 Hgb 10.6 L (11.8-15.2) gm/dl Hct 32.6 L (35.5-45.6) % MCV 71 L (84-94) fl MCH 23 L (28-32) pg RDW 17.1 H (13.2-15.2) % Delta % (Auto) 9.7 H (0.0-7.3) % D-Dimer (0-234) ng/mlDDU Potassium 3.1 L (3.6-5.0) mmol/L Total Creatine Kinase 390 H (55-170) units/L 04/25/19 Range/Units 11:18 Hgb (11.8-15.2) gm/dl Hct (35.5-45.6) % MCV (84-94) fl MCH (28-32) pg RDW (13.2-15.2) % Delta % (Auto) (0.0-7.3) % D-Dimer 835.31 H (0-234) ng/mlDDU Potassium (3.6-5.0) mmol/L Total Creatine Kinase (55-170) units/L Assessment and Plan - Patient Problems (1) Pneumonia Current Visit: Yes Status: Acute Qualifiers: Laterality: bilateral Lung location: lower lobe of lung Plan to address problem: Pneumonia protocol: IV antibiotic therapy, blood cultures, supplemental oxygen, chest X ray, CTA chest, CT abdomen pelvis, D dimer, pulse oximetry, CBC, CMP, supportive care. (2) HTN (hypertension) Current Visit: Yes Status: Acute Qualifiers: Hypertension type: essential hypertension Qualified Code(s): I10 - Essential (primary) hypertension Plan to address problem: Monitor BP q shift, supportive care. (3) HLD (hyperlipidemia) Current Visit: Yes Status: Acute Qualifiers: Hyperlipidemia type: mixed hyperlipidemia Qualified Code(s): E78.2 - Mixed hyperlipidemia Plan to address problem: Statin therapy, low cholesterol diet, low fat diet, (4) DVT prophylaxis Current Visit: Yes Status: Acute Plan to address problem: SCD to BLE while in bed,
[2019-04-25] MEDS ORDERED: NACL 0.9% 500 ML 500 ML ONE (15:21)
[2019-04-25] MEDS ORDERED: PROAIR IH PRN (21:40)
[2019-04-25] MEDS ORDERED: PROVENTIL IH PRN (21:55)
[2019-04-26] MEDS: NORCO 5/325 PO PRN ×3 (00:40→14:39)
[2019-04-26] MEDS: SODIUM CHLORIDE FLUSH SYRINGE 10 ML IV SCH ×2 (00:41→09:06)
[2019-04-26] MEDS: TESSALON PERLES PO SCH ×3 (00:41→14:39)
[2019-04-26] MEDS: BENTYL PO SCH ×2 (00:42→09:06)
[2019-04-26 05:10] LABS: Basophils % (Auto) 0.3 % (0.0-1.8); Eosinophils # (Auto) 0.3 K/mm3 (0.0-0.4); Eosinophils % (Auto) 3.8 % (0.0-4.3); Hemoglobin 10.4 gm/dl (11.8-15.2); Lymphocytes # (Auto) 2.5 K/mm3 (1.2-5.4); Lymphocytes % (Auto) 30.2 % (13.4-35.0); Mean Corpuscular HGB Conc 32 % (32-34); Mean Corpuscular Volume 72 fl (84-94); Monocytes % (Auto) 11.8 % (0.0-7.3); Platelet Count 277 K/mm3 (140-440); Red Blood Count 4.45 M/mm3 (3.65-5.03); Red Cell Distribution Width 17.1 % (13.2-15.2)
[2019-04-26 05:42] LABS: Alanine Aminotransferase 18 units/L (7-56); Albumin 3.6 g/dL (3.9-5); BUN/Creatinine Ratio 13; Blood Urea Nitrogen 10 mg/dL (9-20); Calcium 8.5 mg/dL (8.4-10.2); Hemolysis Index 1
[2019-04-26] MEDS: IMODIUM PO SCH ×2 (09:06→14:39)
[2019-04-26] MEDS ORDERED: ROCEPHIN/NS 2 GM/100 ML 2 GM/100 ML BAG IV SCH (10:00)
[2019-04-26] MEDS ORDERED: ZITHROMAX 500 MG in NACL 0.9% 250ML 250 ML IV SCH (10:00)
[2019-04-26 12:21] VITALS: BP 118/86
[2019-04-26] MEDS ORDERED: K-DUR PO ONE (14:32)
--- NOTE | 2019-04-26 14:40 | Discharge Summary ---
Providers - Providers Date of Admission: 04/25/19 13:42 Date of discharge: 04/26/19 Attending physician: CHARLIE MOURA Primary care physician: MACHINE STAPLER Hospitalization Condition: Stable Pertinent studies: CTA chest: 1. No CT evidence for pulmonary embolism. 2. Small bilateral pleural effusions. Patchy consolidation of both lower lungs. CT abdomen and pelvis: Small left pleural effusion. No acute intra-abdominal findings are identified. Hospital course: 63-year-old male presented to the hospital with complaints of lower abdominal pain. Patient was further evaluated in the ER with CT abdomen and pelvis which showed a left pleural effusion, obtain a CTA chest which showed hyperinflation along with bilateral basilar infiltrates. Patient was admitted to the hospital placed on IV antibiotics, supplemental O2 as needed along with the breathing treatment. His symptom improvement clinically and patient was discharged home i n stable condition with the option of follow-up. His blood pressure was monitored, supplemented potassium for hypokalemia. He will need repeat BMP in 1 week. Discharge diagnosis and Management: /B/L Community acquired Pneumonia Placed on Pneumonia protocol: IV antibiotic therapy, blood cultures, supplemental oxygen, pulse oximetry, CT chest showed no PE, bilateral small pleural effusion along with bilateral basal infiltrates CT abdomen and pelvis showed no acute process Patient was placed on Levaquin and discharged home in stable condition with outpatient follow-up with his primary care physician /HTN (hypertension) Monitored BP q shift, stable / HLD (hyperlipidemia) Statin therapy, low fat diet, /Microcytic anemia, need further outpatient follow-up, recommended colonoscopy as outpatient /Hypokalemia, repleted, repeat BMP in 1 week / DVT prophylaxis SCD to BLE while in bed Disposition: DC-01 TO HOME OR SELFCARE Time spent for discharge: 34 minutes Core Measure Documentation - Palliative Care Palliative Care/ Comfort Measures: Not Applicable - Core Measures Any of the following diagnoses?: none Exam - Constitutional Vitals: Temp Pulse Resp BP Pulse Ox 97.9 F 76 20 118/86 92 04/26/19 11:38 04/26/19 11:38 04/26/19 11:38 04/26/19 11:38 04/26/19 11:38 General appearance: Present: no acute distress, well-nourished - EENT Eyes: Present: PERRL ENT: hearing intact, clear oral mucosa - Neck Neck: Present: supple, normal ROM - Respiratory Respiratory effort: normal Respiratory: bilateral: CTA - Cardiovascular Heart Sounds: Present: S1 & S2. Absent: rub, click - Extremities Extremities: pulses symmetrical, No edema Peripheral Pulses: within normal limits - Abdominal General gastrointestinal: Present: soft, non-tender, non-distended, normal bowel sounds - Integumentary Integumentary: Present: clear, warm, dry - Musculoskeletal Musculoskeletal: gait normal, strength equal bilaterally - Psychiatric Psychiatric: appropriate mood/affect, intact judgment & insight - Neurologic Neurologic: CNII-XII intact, moves all extremities Plan Activity: advance as tolerated Weight Bearing Status: Weight Bear as Tolerated Diet: low fat, low salt Follow up with: PRIMARY CARE, [Primary Care Provider] - 3-5 Days Prescriptions: Potassium Chloride [K-Dur] 20 meq PO QDAY #3 tablet levoFLOXacin [Levaquin] 750 mg PO QDAY #5 tablet
[2019-04-26 15:50] LABS: Bilirubin,Urine NEG (Negative); Blood,Urine SM (Negative); Color,Urine Yellow (Yellow); Mucus,Urine FEW /HPF; Protein,Urine <15 mg/dL mg/dL (Negative); Urobilinogen,Urine < 2.0 mg/dL (<2.0)
== END 2019-04-26 16:03 | disposition home or self-care (01) | DRG 194 ==
LOC: ED 09:01 → 3A 13:42
PROVIDERS: ADMIT Internal Medicine; ATTEND Internal Medicine
DX: J18.1 Lobar pneumonia, unspecified organism (principal); J90 Pleural effusion, not elsewhere classified; I10 Essential (primary) hypertension; E78.2 Mixed hyperlipidemia; E87.6 Hypokalemia; D50.9 Iron deficiency anemia, unspecified; Z86.718 Personal history of other venous thrombosis and embolism; Z87.891 Personal history of nicotine dependence
CPT/HCPCS: 36415; 71045; 71275; 74177; 80048; 80053; 80076; 81001; 82140; 82271; 82550; 83690; 83735; 84484; 85025; 85379; 85610; 85730; 86850; 86900; 86901; 87040; 93005; 93010; 94760; 96365; 96366; 96375; G0378; J0456; J0696; J1956; J2270; J2405; J3480; J7030; J7040; J7050; Q9967